=== PATIENT | female | born 1965 | race Caucasian/White ===

== ENCOUNTER 2019-01-02 17:50 | Emergency (ER) | payer SELFPAY ==
[~2019-01-02] VITALS: Ht 162.6 cm; Wt 60.9 kg
[2019-01-02 18:02] VITALS: BP 161/100; PULSE 92; RESP 20; Ht 162.6 cm; Wt 60.9 kg
== END 2019-01-02 20:19 | disposition left against medical advice (07) ==
LOC: FTE 17:50
DX: Z53.21 Procedure and treatment not carried out due to patient leaving prior to being seen by health care provider (principal)